=== PATIENT | male | born 1960 | race African-American/Black ===

== ENCOUNTER → 2020-07-09 | Outpatient (CLI) | payer OTHER ==
[~2020-07-09] MED LIST: ASPIRIN E.C. 8181 MG PO; CALCIUM CARBONATE; GLUCOTROL 5M5 MG/TAB PO; JANUVIA50 MG PO; NEXIUM ORA40 MG/Pack PO; PRINIVIL20 MG PO; PRINZIDE 12.5 M1 TAB PO; ULTRAM 50MG TAB50 MG; VITAMIN D1000 IU PO; ZANTAC 7575 MG PO; ZOCOR 20MG20 MG PO; [UNRECOGNIZED DRUG - CODE] PO
== END ==
LOC: COL.VAS 13:59
DX: I51.7 Cardiomegaly (principal); R06.02 Shortness of breath

== ENCOUNTER → 2021-07-15 | Outpatient (CLI) | payer OTHER | LOC: COL.RAD 14:32 | DX: I25.10 Atherosclerotic heart disease of native coronary artery without angina pectoris (principal) ==